=== PATIENT | female | born 1980 | race Caucasian/White ===

== ENCOUNTER 2018-09-09 11:18 | Emergency (ER) | payer SELFPAY ==
[2018-09-09] MEDS: MECLIZINE 12.5 MG TAB PO (14:33)
== END 2018-09-09 18:14 | disposition home or self-care (01) ==
LOC: E/R 11:18
DX: R42 Dizziness and giddiness (principal); R40.2142 Coma scale, eyes open, spontaneous, at arrival to emergency department; R40.2362 Coma scale, best motor response, obeys commands, at arrival to emergency department; R40.2252 Coma scale, best verbal response, oriented, at arrival to emergency department; J45.909 Unspecified asthma, uncomplicated
CPT/HCPCS: 70450; 81025; 93005; 99284-25